=== PATIENT | male | born 1960 | race African-American/Black ===

== ENCOUNTER 2019-09-29 07:59 | Emergency (ER) | payer MEDICAID ==
[~2019-09-29] VITALS: Ht 165.1 cm; Wt 75.0 kg
[2019-09-29] MEDS ORDERED: LIDOCAINE HCL/PF 1% 10 MG/ML 5ML VIAL IJ ONE (08:45)
[2019-09-29] MEDS ORDERED: BACITRACIN ZINC OINT UDPKT TOP ONE (08:45)
[2019-09-29 09:59] VITALS: BP 174/118
== END 2019-09-29 10:00 | disposition home or self-care (01) ==
LOC: ER 07:59
DX: L03.012 Cellulitis of left finger (principal)
CPT/HCPCS: 10060; 99284

== ENCOUNTER 2019-10-02 07:51 | Emergency (ER) | payer MEDICAID ==
[~2019-10-02] VITALS: Ht 167.6 cm; Wt 78.0 kg
[2019-10-02 08:29] VITALS: BP 160/100
== END 2019-10-02 08:30 | disposition home or self-care (01) ==
LOC: ER 07:51
DX: L03.012 Cellulitis of left finger (principal); I10 Essential (primary) hypertension; Z48.00 Encounter for change or removal of nonsurgical wound dressing
CPT/HCPCS: 99281; 99283

== ENCOUNTER 2020-06-07 07:01 | Emergency (ER) | payer MEDICAID ==
[~2020-06-07] VITALS: Ht 170.2 cm; Wt 82.0 kg
[2020-06-07] MEDS ORDERED: AMLO5TAB88 MT (09:16)
[2020-06-07] MEDS ORDERED: [UNRECOGNIZED DRUG - CODE] TP (09:16)
[2020-06-07 09:32] VITALS: BP 205/113
== END 2020-06-07 09:33 | disposition home or self-care (01) ==
LOC: ER 07:01
DX: L73.9 Follicular disorder, unspecified (principal); I10 Essential (primary) hypertension
CPT/HCPCS: 99283